=== PATIENT | female | born 1960 | race Caucasian/White ===

== ENCOUNTER 2016-12-11 00:08 | Inpatient (IN) ==
--- NOTE | 2016-12-11 00:33 | Emergency Department Note ---
Arrival - Arrival Chief Complaint: Abdominal / Flank Pain ED Nursing Triage Note: Patient is a transfer from [facility] for further evaluation of acute appendicits. Patient states that abdominal/flank pain is a 7 on a scale from 0-10. Patient recieved 50mg benadryl IV, zosyn 3, 375mg, and 1L of NS IV bolus. Mode of Arrival: Stretcher Limitations: No Limitations Source: Patient Time Seen by Provider: 12/11/16 00:27 - History of Present Illness HPI Narrative: This 56-year-old white female presents with complaints of onset of abdominal pain in the c application developer hours the progressively settled in the right lower quadrant. Coincident but this was severe headache and for both reasons she went to [facility] for further evaluation this evening. Subsequent workup at [place] demonstrated white blood cell count 17,[address] revealed mildly dilated appendix at 9 mm but no periappendiceal inflammatory stranding but felt consistent still with appendicitis. Also noted were multiple renal cysts and masses. Also performed was a CT of the head without contrast which revealed a normal brain. Currently she rates her abdominal pain at 7 out of 10. She is in no acute medical distress. Onset (ago): hour(s) (Patient presents 12 hours post onset of symptoms) Date of Last Menstrual Period: hysterectomy Allergies/Adverse Reactions: Allergies Allergy/AdvReac Type Severity Reaction Status Date / Time No Known Allergies Allergy Verified 07/21/16 12:23 Home Medications: Home Medications Medication Instructions Recorded Confirmed Type Pindolol 2.5 mg PO BEDTIME 07/21/16 07/28/16 History Ranitidine Tab [Zantac Tab] 150 mg PO BID 07/21/16 07/28/16 History Sertraline [Zoloft] 100 mg PO BEDTIME 07/21/16 07/28/16 History rOPINIRole [Requip] 3 mg PO BEDTIME 07/21/16 07/28/16 History oxyCODONE/ACETAMINOPHEN 5-325 1 tablet PO Q4H PRN #15 tablet 07/28/16 Rx [Percocet 5-325] Review of System - Review of System 12 point system: reviewed and no additional remarkable complaints except as stated - Review of System Constitutional: Present: as per HPI Gastrointestinal: Present: as per HPI Medical,Surgical,& Family Hx - Medical History Cardio: History of: Hypertension Psychological: History of: Anxiety Disorders Neurology: No history of: Seizures HEENT: History of: Eye Problem (GLASSES), Dental Problems (FULL SET) Endocrine: History of: Dyslipidemia (past hx) Respiratory: No history of: Respiratory Problems (FLU VAC- YES; PNEU VAC-NO.) Genitourinary: History of: Bladder Problem (URGENCY TO URINATE) Gastrointestinal: History of: GERD, Polyps (REMOVED), GI Problems (HIATAL HERNIA , FISSURE) Musculoskeletal: History of: Musculoskeletal Problems (LT ARM FX A CHILD.) Reproductive: History of: Endometriosis - Surgical History Abdominal Surgeries: Surgical HX of: Abdominal Surgery (FISSURE SX IN PAST), Cholecystectomy, Colonoscopy, EGD Reproductive Surgeries: Surgical HX of;: Hysterectomy, Tubal Ligation - Social History Smoking Status: Never smoker Frequency of Alcohol Use: None Type of Drug Use: None Exam Physical Examination: GENERAL: Obese white female in no acute distress. HEENT: Normocephalic. No trauma. Moist mucous membranes. EOMI. PERRLA. ENT NML NECK: Supple. No adenopathy. CARDIAC: Regular. No murmurs. Heart rate 76 CHEST: Clear to auscultation. No respiratory distress. O2 sat 92% ABDOMEN: Soft. Very tender right lower quadrant with hypoactive bowel sounds. EXTREMITIES: No trauma. Normal ROM. No pedal edema. SKIN: No diaphoresis. No rash. NEURO: Alert. Oriented 3. Motor, sensory, vibratory intact. No focal deficits. Vital Signs: Vital Signs Temperature 98.4 F 12/11/16 00:08 Pulse Rate 76 12/11/16 00:08 Respiratory Rate 21 12/11/16 00:08 Blood Pressure 155/78 12/11/16 00:08 O2 Sat by Pulse Oximetry 92 L 12/11/16 00:08 Course - Reevaluation(s) Reevaluation #1: Discussed with patient the need for hospitalization. - Consultations Consultation #1: Discussed with Dr. Shepherd who will admit for further evaluation and surgical intervention. Results - Diagnostic Findings Procedure: CT Abdomen and Pelvis: image reviewed by me, report reviewed by me ( CT results [place] appendix mildly dilated measuring up to 9 mm in diameter multiple small renal masses bilaterally some cystic while others appear hyperdense suggestive of hemorrhagic or hyperdense cyst), CT: image reviewed by me, report reviewed by me (Head: Normal brain) Disposition Clinical Impression: Appendicitis, Renal cysts Case discussed with: patient, patient's family Disposition: Still a Patient Condition: Guarded Time of Disposition: 00:40
[2016-12-11] MEDS ORDERED: ONDANSETRON 4 MG/2 ML VIAL IV PRN (00:42)
[2016-12-11] MEDS ORDERED: hydrALAZINE 20 MG/1 ML VIAL IV PRN (00:42)
[2016-12-11] MEDS ORDERED: HYDROmorphone 2 MG/1 ML VIAL IV PRN (00:42)
[2016-12-11] MEDS ORDERED: PIPERACILLIN/TAZOBACTAM 3,375 MG in SODIUM CHLORIDE 0.9% 100 ML IV SCH (02:00)
[2016-12-11] MEDS ORDERED: ONDANSETRON 4 MG/2 ML VIAL ONE ×2 (02:45→10:35)
[2016-12-11] MEDS ORDERED: HYDROmorphone 2 MG/1 ML VIAL ONE (02:45)
[2016-12-11] MEDS: LACTATED RINGERS 1,000 ML IV SCH ×2 (05:55→17:55)
[2016-12-11 06:39] LABS: Basophils % 0.2 % (0.0-0.8); Eosinophils # 0.5 10*3/uL (0.0-0.87); Eosinophils % 4.8 % (0.00-10.9); Hemoglobin 11.8 GM/DL (12.0-16.0); Immature Granulocytes % 0.3 %; Immature Granulocytes Absolute 0.03 #; Lymphocytes # 1.1 10*3/uL (1.4-4.0); Lymphocytes % 11.4 % (21.3-54.2); Mean Corpuscular HGB Conc 33.7 GM/DL (32-36); Mean Corpuscular Hemoglobin 30 PG (27-34); Mean Corpuscular Volume 89.5 FL (87-102); Mean Platelet Volume 11.7 FL (9.6-12.0); Monocytes # 0.5 10*3/uL (0.11-0.8); Monocytes % 5.3 % (1.7-12.7); Neutrophils # 7.7 10*3/uL (1.4-7.4); Platelet Count 135 T/CUMM (130-400); Red Blood Count 3.91 MC/CUMM (3.8-5.5); Red Cell Distribution Width 13.2 % (9.3-17.3); White Blood Count 9.8 T/CUMM (4-12)
[2016-12-11 06:59] LABS: INR 1.1; PT Patient Result 11.8 SECS; Partial Thromboplastin Time 32.6 SECS (0-40)
[2016-12-11 07:11] LABS: Bilirubin,Total 1.6 MG/DL (0.2-1.0); Calcium 8.3 MG/DL (8.5-10.1); Potassium 3.8 MMOL/L (3.5-5.1); Total Protein 5.9 G/DL (6.4-8.3)
[2016-12-11 08:01] LABS: Hypochromasia 2+; Microcytosis 1+
--- NOTE | 2016-12-11 09:32 | General Surg History&Physical ---
Assessment and Plan (1) Appendicitis Status: Acute Assessment and plan: This patient has early acute appendicitis. Her headache is likely related to her appendicitis and fever. I recommended a laparoscopic appendectomy to the patient but I have discussed the option of medical management. The risks, benefits, and alternatives of the operation have been discussed with the patient and the expected outcomes have been reviewed. In addition, I mentioned the possibility of diagnostic laparoscopy if her appendix is normal to look at other causes for pain and treat him at the time of surgery. I also discussed the possibility of open surgery. The patient would like to proceed Current Visit: Yes History of Present Illness Chief complaint: Abdominal pain History of present illness: Ms. Abernathy is a 56 year old female who presents to the ER with abdominal pain that started yesterday. She had a headache and some abdominal pain in the right lower quadrant and had a subjective fever at home that she then recorded around 103. She defervesced after shower but continued to have abdominal pain with nausea no vomiting. She has never had problems with this before. She has had a laparoscopic cholecystectomy but no other abdominal surgery. The patient was evaluated at [facility] which demonstrated early appendicitis on her CT scan. White blood cell count is normal. She was transferred [facility] for management. She continues to have pain this morning and is focally having pain in the right lower quadrant Home Medications Medication Instructions Recorded Confirmed Type Pindolol 2.5 mg PO BEDTIME 07/21/16 12/11/16 History Ranitidine Tab [Zantac Tab] 150 mg PO BID 07/21/16 12/11/16 History Sertraline [Zoloft] 100 mg PO BEDTIME 07/21/16 12/11/16 History rOPINIRole [Requip] 3 mg PO BEDTIME 07/21/16 12/11/16 History Furosemide Tab [Lasix Tab] 40 mg PO DAILY PRN 12/11/16 12/11/16 History Allergies Allergy/AdvReac Type Severity Reaction Status Date / Time No Known Allergies Allergy Verified 07/21/16 12:23 Medical,Surgical,& Family Hx - Medical History Cardio: History of: Hypertension Psychological: History of: Anxiety Disorders Neurology: No history of: Seizures HEENT: History of: Eye Problem (GLASSES), Dental Problems (FULL SET) Endocrine: History of: Dyslipidemia (past hx) Respiratory: No history of: Respiratory Problems (FLU VAC- YES; PNEU VAC-NO.) Genitourinary: History of: Bladder Problem (URGENCY TO URINATE) Gastrointestinal: History of: GERD, Polyps (REMOVED), GI Problems (HIATAL HERNIA , FISSURE) Musculoskeletal: History of: Musculoskeletal Problems (LT ARM FX A CHILD.) Reproductive: History of: Endometriosis - Surgical History Abdominal Surgeries: Surgical HX of: Abdominal Surgery (FISSURE SX IN PAST), Cholecystectomy, Colonoscopy, EGD Reproductive Surgeries: Surgical HX of;: Hysterectomy, Tubal Ligation - Family History Family History: Reports;: Family Diabetes (mother), Family Hypertension (mother and father) - Social History Smoking Status: Never smoker Frequency of Alcohol Use: None Type of Drug Use: None Exam - Constitutional Vitals: Period Temp Pulse Resp BP Sys/Mejia Pulse Ox Last 24 Hr 97.2 F-98.4 F 61-76 18-21 100-155/51-78 90-97 General appearance: no acute distress, over weight - Head Head exam: Present: normal inspection, normocephalic - Eye Eye exam: Present: EOMI. Absent: scleral icterus Pupils: Present: TODD - ENT ENT exam: Present: normal exam Mouth exam: Present: normal external inspection, normal voice - Neck Neck exam: Present: normal inspection, trachea midline - Respiratory Respiratory exam: Present: clear to auscultation bilaterally. Absent: accessory muscle use, chest wall tenderness - Cardiovascular Cardiovascular exam: Present: RRR. Absent: systolic murmur, tachycardia - GI/Abdominal GI/Abdominal exam: Present: normal bowel sounds, tenderness (Patient is focally tender in the right lower quadrant with no rebound but there is some voluntary guarding.), soft. Absent: rebound - Extremities Exam Extremities exam: Present: normal inspection, normal capillary refill - Back Exam Back exam: Present: normal inspection - Neurological Exam Neurological exam: Present: alert, oriented X3 Speech: Present: normal - Skin Skin exam: Present: normal color, warm - Constitutional Constitutional: Present: as per HPI - EENT Nose, mouth and throat: Present: as per HPI - Cardiovascular Cardiovascular: Present: as per HPI - Respiratory Respiratory: Present: as per HPI - Gastrointestinal Gastrointestinal: Present: as per HPI - Genitourinary Genitourinary: Present: as per HPI - Musculoskeletal Musculoskeletal: Present: as per HPI - Neurological Neurological: Present: as per HPI - Endocrine Endocrine: Present: as per HPI Hematologic/Lymphatic: Present: as per HPI Results - Labs CBC & BMP: 12/11/16 06:16 12/11/16 06:16 - Diagnostic Findings Procedure: CT Abdomen and Pelvis: image reviewed by me, report reviewed by me ( Early acute appendicitis)
[2016-12-11] MEDS ORDERED: SUCCINYLCHOLINE 200 MG/10 ML VIAL ONE (10:35)
[2016-12-11] MEDS ORDERED: NEOSTIGMINE 10 MG/10 ML VIAL ONE (10:35)
[2016-12-11] MEDS ORDERED: PROPOFOL 200 MG/20 ML VIAL IV ONE (10:35)
[2016-12-11] MEDS ORDERED: ROCURONIUM 100 MG/10 ML VIAL IV ONE (10:35)
[2016-12-11] MEDS ORDERED: GLYCOPYRROLATE 0.4 MG/2 ML VIAL ONE (10:35)
[2016-12-11] MEDS ORDERED: LIDOCAINE 2% 5 ML VIAL ONE (10:35)
[2016-12-11] MEDS ORDERED: KETOROLAC 30 MG/1 ML VIAL ONE (10:35)
[2016-12-11] MEDS ORDERED: PHENYLEPHRINE 1 MG/10 ML SYRINGE IV ONE (10:35)
[2016-12-11] MEDS ORDERED: DEXAMETHASONE 10 MG/1 ML VIAL ONE (10:35)
--- NOTE | 2016-12-11 11:14 | Operative Note ---
Date of procedure: 12/11/16 Pre-op diagnosis: Acute appendicitis Post-op diagnosis: same Procedure: Preoperative diagnosis Acute appendicitis Postoperative diagnosis Same Procedures performed Laparoscopic appendectomy Findings Acute appendicitis, early Blood loss 5 mL Anesthesia GETA Complications None apparent Specimen Appendix Indications Right lower quadrant pain with CT scan concerning for acute early appendicitis consistent with clinical situation. I discussed the option of medical treatment with antibiotics alone with the patient in detail. I discussed the failure rate of 25% with antibiotics alone and the requirement to stay in the hospital for several days of antibiotics and observation. The patient decided to proceed with laparoscopic appendectomy. I discussed the risks, benefits, and alternatives of the operation with the patient, and the expected outcomes were reviewed. In particular, I discussed the risk of bleeding, infection, wound complications, bowel obstruction, and ureteral injury. The patient elects to proceed with the operation. Description of procedure The patient was taken to the operating room and transferred to the operating table in the supine position. Pressure points were padded and SCDs were placed to bilateral lower extremities. General endotracheal anesthesia was administered. The abdominal hair was clipped with electric clippers and the abdomen was prepped with chlorhexidine and draped sterilely. Preoperative antibiotics were administered, and a timeout was performed. The abdomen was entered in the supraumbilical location in the right paramedian position with a Veress needle. Local anesthetic was administered and a 12 mm skin incision was made with an 11 blade scalpel. Penetrating towel clips were used to grasp the abdominal wall skin and a Veress needle was used into the peritoneal cavity. Intra-peritoneal location was confirmed with a double click technique. Aspiration was negative. Saline drop test confirmed intraperitoneal location. The abdomen was insufflated to 15 mmHg with initial insufflation pressure of 8 mmHg. The Veress needle was removed and a 12 mm trocar was placed bluntly. Diagnostic laparoscopy was then performed. There was no evidence of Veress needle or trocar injury. The patient was placed in Trendelenburg and left side rolled down position. Under direct visualization, and after local anesthetic was administered, 2 additional 5 mm trochars were placed in the suprapubic position in the left lower quadrant position. The bowel was then moved out of the right lower quadrant and the appendix was visualized. The appendix appeared to have evidence of early inflammation with injection of the wall of the appendix and dilation of the appendix. There is no perforation. There is no abscess. The appendix was grasped and retracted towards the patient 's feet in a window in the appendiceal mesentery was created with [place] dissector. LEEANN stapler was then used to transect the base of the appendix. The appendiceal mesentery was also divided using vascular staple loads. The right lower quadrant was focally suction irrigated. This was done until the effluent was clear. The appendix was placed in Endo Catch bag and removed through the 12 mm trocar site. The CO2 was then released from the abdomen and the trochars were removed. Skin incisions were closed with 4-0 Monocryl and sterile skin glue was applied. The patient was awakened from anesthesia and transferred to recovery. Postoperative plan Diet as tolerated Follow-up in 2 weeks Anesthesia: CLARITA, local Surgeon / Physician: Breezy Shepherd Estimated blood loss: minimal Specimens: other (appendix) Condition: stable Disposition: PACU Results - Labs CBC & BMP: 12/11/16 06:16 12/11/16 06:16 Discharge Plan - Discharge Medications No Action Sertraline [Zoloft] 100 mg PO BEDTIME Ranitidine Tab [Zantac Tab] 150 mg PO BID rOPINIRole [Requip] 3 mg PO BEDTIME Furosemide Tab [Lasix Tab] 40 mg PO DAILY PRN PRN Reason: fluid Pindolol 2.5 mg PO BEDTIME - Follow Up or Referral - Forms/Instructions
--- NOTE | 2016-12-11 11:16 | Discharge Summary ---
Hospital Course - Hospital Course Hospital Course: Patient was admitted and treated with laparoscopic appendectomy for early acute appendicitis. She was discharged home postoperatively. There is no perforation. Diagnosis - Discharge Diagnosis (1) Appendicitis Status: Acute Discharge Plan - Discharge Data Disposition: Disch To Home/Self Care Condition at Discharge: Stable Discharge Diet: advance to your usual diet Activity: no lifting Hygiene: may shower Weight Bearing at Discharge: weight bear as tolerated Driving: other (Do not drive or operate heavy machinery for at least 24 hours and after you are off of narcotic pain medications.) Contact your physician if you experience:: fever over 101, Difficulty voiding, Redness or swelling, Nausea/Vomiting, Shortness of breath, Bleeding, pain uncontrolled by pain medications Wound / Dressing Care Instructions: It is okay to shower. Do not scrub the incision aggressively or submerge it under water. - Discharge Medications New HYDROcodone/ACETAMIN 7.5-325 [Dawes 7.5-325] 1 tablet PO Q4H PRN #20 tablet PRN Reason: Pain Continue Sertraline [Zoloft] 100 mg PO BEDTIME Ranitidine Tab [Zantac Tab] 150 mg PO BID rOPINIRole [Requip] 3 mg PO BEDTIME Furosemide Tab [Lasix Tab] 40 mg PO DAILY PRN PRN Reason: fluid Pindolol 2.5 mg PO BEDTIME - Follow Up or Referral Follow Up: Breezy Shepherd MD [Physician] - 2 Weeks - Forms/Instructions Exam - Constitutional Vitals: Period Temp Pulse Resp BP Sys/Mejia Pulse Ox Last 24 Hr 97.2 F-98.4 F 61-76 18-21 100-155/51-78 90-97 Discharge Results Labs on day of discharge: Labs from last 24 hours 12/11/16 12/11/16 12/11/16 06:16 06:16 06:16 WBC 9.8 RBC 3.91 Hgb 11.8 L Hct 35.0 L MCV 89.5 MCH 30 MCHC 33.7 RDW 13.2 Plt Count 135 MPV 11.7 Neut % (Auto) 78.0 H Lymph % (Auto) 11.4 L Hyde % (Auto) 5.3 Eos % (Auto) 4.8 Baso % (Auto) 0.2 Neut # (Auto) 7.7 H Lymph # (Auto) 1.1 L Hyde # (Auto) 0.5 Eos # (Auto) 0.5 Baso # (Auto) 0.0 Immature Gran % 0.3 Nucleated RBC % 0.0 Immature Gran # 0.03 Nucleated RBCs # 0.00 Immature Plt Fraction 0.0 Hypochromasia 2+ Microcytosis 1+ INR 1.1 PT Patient/Control Mix 11.8 Circ Anticoag PTT 32.6 Sodium 143 Potassium 3.8 Chloride 111 H Carbon Dioxide 26 Anion Gap 9.8 BUN 17 Creatinine 0.80 GFR Calculation 96 BUN/Creatinine Ratio 21.00 H Glucose 96 Calculated Osmolality 286.0 Calcium 8.3 L Total Bilirubin 1.60 H AST 33 ALT 37 Alkaline Phosphatase 72 Total Protein 5.9 L Albumin 3.0 L Globulin 2.9 Albumin/Globulin Ratio 1.0 L DS: Provider Date of admission: 12/11/16 00:40 Primary care physician: Alex Richards Attending physician on admission: Breezy Shepherd MD Consults: 12/11/16 09:28 Consult to Anesthesiology [CONS] Routine Consulting Provider: Reason for Anesthesiology: Pre-op Clearance Discharging clinician: Breezy Sehpherd MD Expected date of discharge: 12/11/16
--- NOTE | 2016-12-11 11:34 | Anesthesia Post-Op ---
Anesthesia Post OP - Post Ansesthetic Evaluation Patient seen in post op: Yes Resp: within normal limits CV: within normal limits Mental: within normal limits Temp: within normal limits [id number]: within normal limits Nausea and Vomiting: within normal limits Pain: within normal limits
[2016-12-11] MEDS ORDERED: fentaNYL 100 MCG/2 ML VIAL ONE (11:36)
[2016-12-11] MEDS ORDERED: SEVOFLURANE 1 UNIT/15 MINUTE INH ONE (11:36)
[2016-12-11] MEDS ORDERED: MIDAZOLAM 2 MG/2 ML VIAL ONE (11:36)
[2016-12-11] MEDS ORDERED: FUROSEMIDE 40 MG TABLET PO PRN (12:33)
[2016-12-11 18:26] VITALS: BP 118/63
[2016-12-11] MEDS ORDERED: RANITIDINE 150 MG TABLET PO SCH (21:00)
[2016-12-11] MEDS ORDERED: rOPINIRole 1 MG TABLET PO SCH (21:00)
[2016-12-11] MEDS ORDERED: PINDOLOL 5 MG TABLET PO SCH (21:00)
[2016-12-11] MEDS ORDERED: SERTRALINE 100 MG TABLET PO SCH (21:00)
--- NOTE | 2016-12-13 11:24 | Pathology Report from [facility] ---
[facility] ACCESSION # : [id number] PATIENT NAME : Noa Abernathy ORDERING DR : Breezy Shepherd MD CLINICAL HX: Appendicitis POST-OP DX: Same SPECIMEN INFO: Appendix GROSS DESCRIPTION: Received in formalin labeled NOA ABERNATHY is an appendix and attached appendiceal fat measuring 5.3 x 0.9 cm. The serosa is smooth and light nickerson junior. The lumen contains semisolid hemorrhagic material with no definite fecaliths identified. No perforations are seen. Society Editor sections are submitted in one cassette. DIAGNOSIS FOR NOA ABERNATHY: APPENDIX, APPENDECTOMY: Chronic inflammation, serosal congestion. COLLECTED DATE: 12/12/2016 [facility] REPORT DATE: 12/13/2016 ELECTRONICALLY SIGNED BY: Saleem Kendall M.D. 12/13/2016 - 10:15:38 MTDD
== END 2016-12-11 18:56 | disposition home or self-care (01) | DRG 343 ==
LOC: EDBD → EDUNIT# → N.ED 00:08 → N.EDINP 00:40 → N.3E 02:02
PROVIDERS: ADMIT Surgery; ATTEND Surgery

== ENCOUNTER 2016-12-28 19:04 | Inpatient (IN) ==
[2016-12-28] MEDS ORDERED: FUROSEMIDE 40 MG/4 ML VIAL IV STA (19:56)
[2016-12-28] MEDS ORDERED: ALBUTEROL/IPRATROPIUM 3 ML NEB RESP TX STA (19:56)
[2016-12-28] MEDS ORDERED: methylPREDNISolone SOD SUC 125 MG/2 ML VIAL IV STA (19:56)
[2016-12-28] MEDS ORDERED: MORPHINE 2 MG/1 ML SYRINGE IV STA (19:56)
[2016-12-28] MEDS ORDERED: ALUM/MAG/SIMETH/LIDO VISC 1:1 30 ML BOTTLE PO STA (19:56)
[2016-12-28] MEDS ORDERED: NITROGLYCERIN 2% OINT 1 INCH/GM PACK TOP STA (19:56)
[2016-12-28] MEDS ORDERED: ONDANSETRON 4 MG/2 ML VIAL IV STA (19:56)
[2016-12-28] MEDS ORDERED: KETOROLAC 30 MG/1 ML VIAL IV STA (19:56)
[2016-12-28] MEDS ORDERED: ASPIRIN 325 MG TABLET PO STA (19:56)
--- NOTE | 2016-12-28 20:13 | Emergency Department Note ---
Daksha Patiño Brittany, am scribing for, and in the presence of, Mike Madrid MD 20:06. Mercy Patiño Charles R, MD, personally performed the services described in this documentation, ascribed by Aida Crooks in my presence, and it is both accurate and complete . Arrival - Arrival Chief Complaint: Chest Pain Stated Complaint: SOB,CHEST PAIN,FEVER ED Nursing Triage Note: Pt to triage with c/o chest pain that started around 0130 this morning that feels very sharp and radiates to her back. Pt also c/o sob, but denies any N/V. Pt has a cardiac hx of mitral valve prolapse. Pt was seen at [facility] today but discharge home. Mode of Arrival: Wheelchair Limitations: No Limitations Source: Patient - History of Present Illness HPI Narrative: This is a 56 y/o white female,who presents to the ED with c/o CP which started at 0130 this morning. She states she was seen at [facility] ER this morning and had a chest x-ray preformed. She notes she is SOB. She describes the chest pain as a sharp pain. She notes the chest pain radiates into her back. She localizes the CP to the right of the chest. She reports a fever around lunch today. She notes orthopnea while laying down flat. Pt reports taking Lasix for "fluid". Pt has no other complaints/pain in the ED at this time. Pt has a PMhx of mitral valve prolapse, HTN, dyslipidemia, anxiety, bladder problems, polys, GERD, GI problems, musculoskeletal problems, and edometrosis. Pt has had a abdominal surgery, appendectomy cholecystectomy, EGD, colonoscopy, hysterectomy, and tubal ligation. Pt has a family medical Hx of diabetes and HTN. Pt denies a social Hx. Onset (ago): hour(s) (Started at 0130 this morning) Consistency: constant Severity: moderate Allergies/Adverse Reactions: Allergies Allergy/AdvReac Type Severity Reaction Status Date / Time No Known Allergies Allergy Verified 12/28/16 19:22 Home Medications: Home Medications Medication Instructions Recorded Confirmed Type Pindolol 2.5 mg PO BEDTIME 07/21/16 12/28/16 History Ranitidine Tab [Zantac Tab] 150 mg PO BID 07/21/16 12/28/16 History Sertraline [Zoloft] 100 mg PO BEDTIME 07/21/16 12/28/16 History rOPINIRole [Requip] 3 mg PO BEDTIME 07/21/16 12/28/16 History Furosemide Tab [Lasix Tab] 40 mg PO DAILY PRN 12/11/16 12/28/16 History Ibuprofen [Ibuprofen] 600 mg PO TID PRN 12/28/16 12/28/16 History Oxycodone HCl/Acetaminophen 1 each PO Q4H PRN 12/28/16 12/28/16 History [Oxycodone-Acetaminophen 5-325] Review of System - Review of System 12 point system: reviewed and no additional remarkable complaints except as stated - Review of System Constitutional: Present: fever (Low grade fever ) Respiratory: Present: cough (Dry cough) Cardiovascular: Present: chest pain, dyspnea on exertion, orthopnea Medical,Surgical,& Family Hx - Medical History Cardio: History of: Hypertension Psychological: History of: Anxiety Disorders Neurology: No history of: Seizures HEENT: History of: Eye Problem (GLASSES), Dental Problems (FULL SET) Endocrine: History of: Dyslipidemia (past hx) Respiratory: No history of: Respiratory Problems (FLU VAC- YES; PNEU VAC-NO.) Genitourinary: History of: Bladder Problem (URGENCY TO URINATE) Gastrointestinal: History of: GERD, Polyps (REMOVED), GI Problems (HIATAL HERNIA , FISSURE) Musculoskeletal: History of: Musculoskeletal Problems (LT ARM FX A CHILD.) Reproductive: History of: Endometriosis - Surgical History Abdominal Surgeries: Surgical HX of: Abdominal Surgery (FISSURE SX IN PAST), Appendectomy, Cholecystectomy, Colonoscopy, EGD Reproductive Surgeries: Surgical HX of;: Hysterectomy, Tubal Ligation - Family History Family History: Reports;: Family Diabetes (mother), Family Hypertension (mother and father) - Social History Smoking Status: Never smoker Frequency of Alcohol Use: None Type of Drug Use: None Exam Vital Signs: Vital Signs Temperature 99.2 F 12/28/16 19:15 Pulse Rate 96 H 12/28/16 20:29 Respiratory Rate 18 12/28/16 20:29 Blood Pressure 123/69 12/28/16 19:15 O2 Sat by Pulse Oximetry 99 12/28/16 20:29 - General General appearance: alert, in no apparent distress - Head Head exam: Present: normal inspection - Eye Eye exam: Present: PERRL, EOMI. Absent: nystagmus - ENT ENT exam: Present: mucous membranes moist - Neck Neck exam: Present: full ROM, trachea midline. Absent: tenderness - Chest Chest inspection: Present: symmetric chest wall rise, tenderness (pleuritic chest pain which is under the right breast and moves into the back ). Absent: rash - Respiratory Respiratory exam: Present: rales, rhonchi - Cardiovascular Cardiovascular exam: Present: normal rhythm, tachycardia, normal heart sounds. Absent: murmur, rubs, gallop, clicks, JVD - Abdominal Exam Abdominal exam: Present: soft, normal bowel sounds. Absent: tenderness - Rectal Exam Rectal exam: Present: deferred - Extremities Exam Extremities exam: Present: normal capillary refill, pedal edema (+1 pitting edema). Absent: tenderness, calf tenderness - Back Exam Back exam: Present: full ROM. Absent: tenderness, muscle spasm, rashes - Neurological Exam Neurological exam: Present: alert, oriented X3, CN II-XII intact. Absent: motor sensory deficit - Psychiatric Psychiatric exam: Present: normal affect, normal mood. Absent: depressed, agitated, anxious, flat affect, manic - Skin Skin exam: Present: warm, dry, intact, normal color. Absent: rash, cyanosis, diaphoresis Course - Consultations Consultation #1: Hospitalist will admit patient Time: 22:06 Results - Labs CBC & BMP: 12/28/16 20:02 12/28/16 20:02 - Diagnostic Findings Procedure: Chest x-ray: report reviewed by me (Increased density, partially silhouetting the left hemidiaphragm,) Disposition Clinical Impression: Atypical chest pain, Bronchitis, Pneumonitis, Acute dyspnea Case discussed with: patient, patient's family Disposition: Still a Patient Condition: Stable Time of Disposition: 22:08
--- NOTE | 2016-12-28 20:15 | XRay Report ---
Portable chest Exam date: 12/28/2016 7:57 PM Indication: Chest pain Comparison: December 10, 2016 Findings: Cardiomediastinal contours are stable with underlying cardiomegaly. Increasing density within the left lung base with partial silhouetting of left hemidiaphragm. No acute osseous abnormalities. Visualized upper abdomen demonstrates no acute pathology. Impression: Increased density, partially silhouetting the left hemidiaphragm, likely atelectasis given low lung volumes. Correlate with upright PA and lateral projection PROCEDURE INTERPRETED AT [facility] DEPARTMENT OF RADIOLOGY Final Report Signed by: Savi Machado MD
[2016-12-28 20:16] LABS: Basophils % 0.2 % (0.0-0.8); Eosinophils # 0.2 10*3/uL (0.0-0.87); Eosinophils % 1.6 % (0.00-10.9); Hematocrit 38.2 VOL% (35.7-47.0); Hemoglobin 13.1 GM/DL (12.0-16.0); Immature Granulocytes % 0.7 %; Immature Granulocytes Absolute 0.08 #; Lymphocytes # 0.9 10*3/uL (1.4-4.0); Lymphocytes % 7.6 % (21.3-54.2); Mean Corpuscular HGB Conc 34.3 GM/DL (32-36); Mean Corpuscular Hemoglobin 30 PG (27-34); Mean Corpuscular Volume 86.8 FL (87-102); Mean Platelet Volume 11.3 FL (9.6-12.0); Monocytes # 0.5 10*3/uL (0.11-0.8); Monocytes % 4.6 % (1.7-12.7); Neutrophils # 9.6 10*3/uL (1.4-7.4); Neutrophils % 85.3 % (38.7-73.9); Platelet Count 169 T/CUMM (130-400); Red Cell Distribution Width 12.7 % (9.3-17.3); White Blood Count 11.3 T/CUMM (4-12)
[2016-12-28 20:25] LABS: INR 1.1; PT Patient Result 11.4 SECS
[2016-12-28] MEDS ORDERED: MORPHINE 2 MG/1 ML SYRINGE ONE (20:27)
[2016-12-28] MEDS ORDERED: ONDANSETRON 4 MG/2 ML VIAL ONE (20:27)
[2016-12-28] MEDS ORDERED: methylPREDNISolone SOD SUC 125 MG/2 ML VIAL ONE (20:27)
[2016-12-28] MEDS ORDERED: NITROGLYCERIN 2% OINT 1 INCH/GM PACK TOP ONE (20:27)
[2016-12-28] MEDS ORDERED: KETOROLAC 30 MG/1 ML VIAL ONE (20:29)
[2016-12-28] MEDS ORDERED: ALUM/MAG/SIMETH/LIDO VISC 1:1 30 ML BOTTLE PO ONE (20:29)
[2016-12-28] MEDS ORDERED: ASPIRIN 325 MG TABLET ONE (20:29)
[2016-12-28] MEDS ORDERED: FUROSEMIDE 40 MG/4 ML VIAL ONE (20:29)
[2016-12-28 20:38] LABS: Albumin 3.3 G/DL (3.4-5.0); Bilirubin,Total 1.6 MG/DL (0.2-1.0); Magnesium 1.9 MG/DL (1.8-2.4); Osmolality,Calculated 275.7 MOS/KG (273-304); Potassium 4.1 MMOL/L (3.5-5.1); Total Protein 7.2 G/DL (6.4-8.3)
[2016-12-28 21:06] LABS: Apearance,Urine CLEAR (Clear); Bacteria,Urine Few /HPF (Few); Bilirubin,Urine Negative (Negative); Blood, Urine Negative (Negative); Glucose,Urine (UA) Negative (Negative); Ketones,Urine Negative (Negative); Mucus,Urine Occasional /LPF (Occasional); Nitrite,Urine Negative (Negative); Protein,Urine 30 MG/DL; RBC,Urine 1 /HPF (0-4); Squamous Epithelial Cell,Urine Occasional /HPF (0-10); Urine Color Yellow (Yellow); Urine Specific Gravity 1.025 (1.001-1.035); WBC,Urine 3 /HPF (0-6)
[2016-12-28] MEDS ORDERED: ACETAMINOPHEN 325 MG TABLET PO PRN (22:52)
[2016-12-28] MEDS ORDERED: ONDANSETRON 4 MG/2 ML VIAL IV PRN (22:52)
[2016-12-28] MEDS ORDERED: MORPHINE 2 MG/1 ML SYRINGE IV PRN (22:52)
--- NOTE | 2016-12-28 23:27 | Hospitalist History & Physical ---
Assessment and Plan - Time spent with patient Time spent with patient: Greater than 30 minutes (1) Pneumonitis Status: Acute Assessment and plan: Admit to hospitalist services. Start Levoquin 720 mg IV Q24 hours. Blood cultures obtained in ED; follow. Obtain sputum cultures; follow. DuoNebs Q6 hours. Initial troponin was <0.015; follow serial troponins and EKGs. Flu test was negative. Strep performed at [facility] was negative. Repeat CBC, CMP, and BNP in a.m. Repeat CXR in 48 hours. Current Visit: Yes (2) Atypical chest pain Status: Acute Assessment and plan: As above. Current Visit: Yes (3) Elevated LFTs Status: Acute Assessment and plan: As above. Repeat CMP in a.m. Current Visit: Yes (4) DVT prophylaxis Status: Acute Assessment and plan: Lovenox 40 mg SQ daily. Current Visit: Yes History of Present Illness Chief complaint: Chest pain; shortness of breath History of present illness: Ms. Abernathy is a 56 year old female with a past medical history of GERD, hiatal hernia, mitral valve prolapse, dyslipidemia, and hypertension for which she no longer needs medication who presented to the ED tonight with complaints of sharp , intermittent epigastric pain radiating into her back and worsened with any movement and on deep inspiration, as well as shortness of breath at rest and worsened by exertion, and coughing. Symptoms started at about 0130 today with severe coughing which was non-productive. She presented to [facility] at that time and was discharged home. Around lunchtime today she noted a fever of 99.8. Symptoms continue to worsen throughout the day, so she decided to present to the ED here. Just prior to arrival in the ED, she noted a fever of 101.4. She denies nausea, vomiting, and diaphoresis, but does have some orthopnea. She reports having an appendectomy here at [facility] about 2 1/2 weeks ago. She reports seeing Dr. Padilla yearly for mitral valve prolapse. Her last echocardiogram was about 2 years ago. In the ED, labs showed WBC 11.3 with a left shift, total bilirubin 1.6, AST 43, and BNP 281. Her temp was noted to be 99.2 in the ED, heart rate 103, respiratory rate 18, and blood pressure 123/69. Chest x-ray showed increased density, partially silhouetting the left hemidiaphragm. Severity of shortness of breath prompted the ERP to perform chest CT with PE protocol, which showed mild cardiomegaly, and scattered heterogeneous opacities in the peripheral lungs worse in the left lower lung, suggesting scarring and/or atelectasis. Mild pneumonitis cannot be excluded, but no PE was noted. Currently she is lying in bed resting comfortably with moderate relief of symptoms. Hospitalist services were consulted, and the patient will be admitted for further evaluation and treatment. Home medications were reviewed and reconciled. This patient is a full code. Home Medications Medication Instructions Recorded Confirmed Type Pindolol 2.5 mg PO BEDTIME 07/21/16 12/28/16 History Ranitidine Tab [Zantac Tab] 150 mg PO BID 07/21/16 12/28/16 History Sertraline [Zoloft] 100 mg PO BEDTIME 07/21/16 12/28/16 History rOPINIRole [Requip] 3 mg PO BEDTIME 07/21/16 12/28/16 History Furosemide Tab [Lasix Tab] 40 mg PO DAILY PRN 12/11/16 12/28/16 History Ibuprofen [Ibuprofen] 600 mg PO TID PRN 12/28/16 12/28/16 History Oxycodone HCl/Acetaminophen 1 each PO Q4H PRN 12/28/16 12/28/16 History [Oxycodone-Acetaminophen 5-325] Allergies Allergy/AdvReac Type Severity Reaction Status Date / Time No Known Allergies Allergy Verified 12/28/16 19:22 Medical,Surgical,& Family Hx - Medical History Cardio: History of: Hypertension (No longer takes medication for HTN. ), Valvular Heart Disease (Mitral valve prolapse; sees Dr. Padilla yearly. ) Psychological: History of: Anxiety Disorders HEENT: History of: Eye Problem (GLASSES), Dental Problems (FULL SET) Endocrine: History of: Dyslipidemia (past hx) Genitourinary: History of: Bladder Problem (URGENCY TO URINATE) Gastrointestinal: History of: GERD, Polyps (REMOVED), GI Problems (HIATAL HERNIA , FISSURE) Musculoskeletal: History of: Musculoskeletal Problems (LT ARM FX A CHILD.) Reproductive: History of: Endometriosis - Surgical History Abdominal Surgeries: Surgical HX of: Abdominal Surgery (FISSURE SX IN PAST), Appendectomy, Cholecystectomy, Colonoscopy, EGD Reproductive Surgeries: Surgical HX of;: Hysterectomy, Tubal Ligation - Family History Family History: Reports;: Family Diabetes (mother), Family Hypertension (mother and father) - Social History Smoking Status: Never smoker Have you smoked in the last 12 months: No Frequency of Alcohol Use: None Type of Drug Use: None Marital Status: Lives With:: Spouse Functional capacity: independent ambulation 12 point system: reviewed and no additional remarkable complaints except as stated - Constitutional Constitutional: Present: fever(s). Absent: chills, malaise, weakness - EENT Eyes: Absent: blurry vision, diplopia, loss of vision Ears: Absent: decreased hearing, ear discharge, ear pain Nose, mouth and throat: Present: sore throat. Absent: headache(s), nasal congestion - Cardiovascular Cardiovascular: Present: chest pain at rest, chest pain with activity, dyspnea, dyspnea on exertion, orthopnea. Absent: edema, radiating jaw, neck or arm pain , palpitations - Respiratory Respiratory: Present: cough (dry; non-productive ), dyspnea, dyspnea on exertion. Absent: wheezing - Gastrointestinal Gastrointestinal: Absent: abdominal pain, constipation, diarrhea, nausea, vomiting - Genitourinary Genitourinary: Absent: dysuria, flank pain, urinary frequency - Musculoskeletal Musculoskeletal: Present: back pain. Absent: arthralgias, joint swelling, muscle weakness, myalgias - Neurological Neurological: Absent: confusion, dizziness, numbness, paresthesias, syncope - Psychiatric Psychiatric: Absent: anxiety, depression - Endocrine Endocrine: Absent: cold intolerance, polydipsia, polyphagia, polyuria - Hematologic/Lymphatic Hematologic/Lymphatic: Absent: easy bleeding, easy bruising Exam - Constitutional Vitals: Period Temp Pulse Resp BP Sys/Mejia Pulse Ox Last 24 Hr 99.2 F-99.2 F 96-104 18-20 123-123/69-69 99-99 Exam: Constitutional System: Low-grade fever. Awake, alert and oriented x 3. [No] distress. [No] tremulousness. Head: Normocephalic, atraumatic. Ears, Nose and Throat System: No pain or tenderness. No epistaxis or discharge Eyes System: Pupils equal, round, and reactive. Extraocular muscles intact. Neck: Supple, without adenopathy, [No] jugular venous distention. No thyromegaly , neck mass, or prior surgery apparent. Respiratory System: Chest [clear] to auscultation. Cardiovascular System: Heart with [regular] rate and rhythm. [No] murmur. GI System: Abdomen [soft], [non]tender. [Normo]active bowel sounds present. Musculoskeletal System: Limbs with [no] pedal edema. [Full] distal pulses. Normal capillary refill. Neurological System: [No discernable] sensory deficit. [No] aphasia Psychiatric System: Conversation is [rational] Results - Labs CBC & BMP: 12/28/16 20:02 12/28/16 20:02 Lab Results: I have reviewed the past 24 hour labs
[2016-12-29] MEDS: ALBUTEROL/IPRATROPIUM 3 ML NEB RESP TX SCH ×4 (00:21→19:11)
[2016-12-29] MEDS: LEVOFLOXACIN INJ 750 MG in PREMIX 1 EACH IV SCH (00:56)
[2016-12-29] MEDS: ENOXAPARIN 40 MG/0.4 ML SYRINGE SUBCUT SCH ×2 (00:58→23:27)
[2016-12-29] MEDS: rOPINIRole 1 MG TABLET PO SCH ×2 (01:00→21:08)
[2016-12-29] MEDS: FAMOTIDINE 20 MG TABLET PO SCH ×3 (01:01→21:07)
[2016-12-29] MEDS: PINDOLOL 5 MG TABLET PO SCH ×2 (01:01→21:08)
[2016-12-29] MEDS: SERTRALINE 100 MG TABLET PO SCH ×2 (01:01→21:07)
[2016-12-29 02:27] LABS: Basophils % 0.2 % (0.0-0.8); Hematocrit 36.4 VOL% (35.7-47.0); Hemoglobin 12.4 GM/DL (12.0-16.0); Immature Granulocytes % 0.5 %; Immature Granulocytes Absolute 0.05 #; Lymphocytes # 0.3 10*3/uL (1.4-4.0); Lymphocytes % 2.6 % (21.3-54.2); Mean Corpuscular HGB Conc 34.1 GM/DL (32-36); Mean Corpuscular Hemoglobin 30 PG (27-34); Mean Corpuscular Volume 86.9 FL (87-102); Mean Platelet Volume 11.3 FL (9.6-12.0); Monocytes # 0.1 10*3/uL (0.11-0.8); Monocytes % 0.9 % (1.7-12.7); Neutrophils # 9.8 10*3/uL (1.4-7.4); Neutrophils % 95.8 % (38.7-73.9); Platelet Count 162 T/CUMM (130-400); Red Blood Count 4.19 MC/CUMM (3.8-5.5); White Blood Count 10.2 T/CUMM (4-12)
[2016-12-29 03:06] LABS: Albumin 3.1 G/DL (3.4-5.0); Bilirubin,Total 1.8 MG/DL (0.2-1.0); Calcium 8.6 MG/DL (8.5-10.1); Osmolality,Calculated 282.7 MOS/KG (273-304); Risk Ratio 2.71; Thyroid Stimulating Hormone 2.27 uIU/ml (0.358-3.74); Total Protein 6.6 G/DL (6.4-8.3); VLDL CHOLESTEROL 9.8 MG/DL
[2016-12-29 05:28] LABS: Band Neutrophils 6 % (0-10); Giant Platelets Few; Hypochromasia 1+; Lymphocytes 1 % (20-55); Microcytosis Slight; Ovalocytes Slight; Platelet Estimate Normal; Segmented Neutrophils 92 % (50-85); Total Cells Counted 100
--- NOTE | 2016-12-29 06:53 | CT Report ---
CT chest pulmonary embolism Indication: Chest pain, shortness of breath and elevated d-dimer Comparison: None available Technique: Axial CT imaging of the chest is performed with intravenous contrast. Contrast dose is 80 cc of Omnipaque 350. Findings: No thrombus or other abnormality is identified in the pulmonary arteries or veins. The pulmonary vessel caliber is within normal limits. The heart, mediastinum and great vessels appear within normal limits. Trace amounts of airspace density are present in both lower lungs slightly more prominent on the left. Nondependent density is seen in the lingula segment. Remaining pulmonary parenchyma shows no evidence of airspace disease or abnormal density. No effusion or pneumothorax is present. Impression: No evidence of pulmonary thromboembolism. Small amounts of airspace density in both lower lungs, slightly more prominent in the lingula segment could indicate pneumonitis. This CT exam was performed using one or more the following dose reduction techniques: Automated exposure control, adjustment of the MA and/or KV according to patient size, or use of iterative reconstruction technique. PROCEDURE INTERPRETED AT [facility] DEPARTMENT OF RADIOLOGY Final Report Signed by: Dr. Claudio Puga
--- NOTE | 2016-12-29 08:00 | XRay Report ---
XR chest 2V Indication: Shortness of breath Comparison: 28 December 2016 Findings: The heart and mediastinum are normal in size and configuration. The pulmonary vascularity is normal in caliber. No lung infiltrates, effusions, pneumothorax or other abnormality is demonstrated. Impression: No acute cardiopulmonary disease. PROCEDURE INTERPRETED AT [facility] DEPARTMENT OF RADIOLOGY Final Report Signed by: Dr. Claudio Puga
--- NOTE | 2016-12-29 10:49 | Hospitalist Progress Note ---
Assessment and Plan (1) Pneumonitis Status: Acute Assessment and plan: Patient was begun last night on intravenous levofloxacin and albuterol ipratropium nebulizer therapy. Current Visit: Yes Hospitalist: Subjective Interval history: Patient was admitted to the hospital last night with pneumonia. She was begun on intravenous levofloxacin and albuterol ipratropium nebulizer therapy. She states that she feels mildly better since her admission to the hospital, but continues to feel extremely weak. Exam - Constitutional Vitals: Period Temp Pulse Resp BP Sys/Mejia Pulse Ox Last 24 Hr 96.8 F-99.2 F 68-104 18-20 93-125/50-69 90-99 General appearance: no acute distress - Head Head exam: Present: normal inspection - Neck Neck exam: Present: normal inspection - Respiratory Respiratory exam: Present: clear to auscultation bilaterally - Cardiovascular Cardiovascular exam: Present: regular rate and rhythm - GI/Abdominal GI/Abdominal exam: Present: normal bowel sounds, soft, other (Nontender with no palpable masses or hepatosplenomegaly.) - Extremities Exam Extremities exam: Present: normal inspection - Skin Skin exam: Present: normal color, warm, intact Results - Labs CBC & BMP: 12/29/16 02:19 12/29/16 02:19
--- NOTE | 2016-12-29 20:12 | Order Completion Report ---
See report scanned to EMR
--- NOTE | 2016-12-29 20:12 | Order Completion Report ---
See report scanned to EMR
--- NOTE | 2016-12-29 20:12 | Order Completion Report ---
See report scanned to EMR
[2016-12-30] MEDS: ALBUTEROL/IPRATROPIUM 3 ML NEB RESP TX SCH ×4 (00:39→19:18)
[2016-12-30] MEDS: LEVOFLOXACIN INJ 750 MG in PREMIX 1 EACH IV SCH (00:42)
[2016-12-30] MEDS: FAMOTIDINE 20 MG TABLET PO SCH ×2 (08:15→21:36)
--- NOTE | 2016-12-30 10:25 | Hospitalist Progress Note ---
Assessment and Plan (1) Pneumonitis Status: Acute Assessment and plan: Patient is being treated with intravenous levofloxacin and albuterol ipratropium nebulizer therapy. Current Visit: Yes Hospitalist: Subjective Interval history: Patient is doing somewhat better than yesterday. Her major complaint is coughing. She is not complaining of wheezing or shortness of breath. She continues on intravenous levofloxacin and albuterol ipratropium nebulizer therapy. Exam - Constitutional Vitals: Period Temp Pulse Resp BP Sys/Mejia Pulse Ox Last 24 Hr 96.7 F-98.3 F 68-85 15-20 115-133/59-75 91-99 General appearance: no acute distress - Head Head exam: Present: normal inspection - Neck Neck exam: Present: normal inspection - Respiratory Respiratory exam: Present: clear to auscultation bilaterally - Cardiovascular Cardiovascular exam: Present: regular rate and rhythm - GI/Abdominal GI/Abdominal exam: Present: normal bowel sounds, soft, other (Nontender with no palpable masses or hepatosplenomegaly.) - Extremities Exam Extremities exam: Present: normal inspection - Skin Skin exam: Present: normal color, warm, intact Results - Labs CBC & BMP: 12/29/16 02:19 12/29/16 02:19
--- NOTE | 2016-12-30 13:52 | General Surgery Consult Note ---
Assessment and Plan (1) S/P appendectomy Status: Acute Assessment and plan: Patient #2-1/2 weeks status post laparoscopic appendectomy for acute appendicitis. Appears to be no surgical complications at this time. Dr. Shepherd to follow. Current Visit: Yes History of Present Illness Chief complaint: appendectomy f/u History of present illness: Ms. Abernathy is a 56 year old female who underwent laparoscopic appendectomy for acute appendicitis on December 11, 2016. Her postoperative appointment was scheduled for today but she is currently inpatient receiving treatment for pneumonia for which she is improving. From a surgical standpoint, the patient reports that she was feeling well and had a return to work. She is having no abdominal pain and was tolerating oral intake without difficulty. She had no incisional symptoms. Home Medications Medication Instructions Recorded Confirmed Type Pindolol 2.5 mg PO BEDTIME 07/21/16 12/28/16 History Ranitidine Tab [Zantac Tab] 150 mg PO BID 07/21/16 12/28/16 History Sertraline [Zoloft] 100 mg PO BEDTIME 07/21/16 12/28/16 History rOPINIRole [Requip] 3 mg PO BEDTIME 07/21/16 12/28/16 History Furosemide Tab [Lasix Tab] 40 mg PO DAILY PRN 12/11/16 12/28/16 History Ibuprofen [Ibuprofen] 600 mg PO TID PRN 12/28/16 12/28/16 History Oxycodone HCl/Acetaminophen 1 each PO Q4H PRN 12/28/16 12/28/16 History [Oxycodone-Acetaminophen 5-325] Allergies Allergy/AdvReac Type Severity Reaction Status Date / Time No Known Allergies Allergy Verified 12/28/16 19:22 Medical,Surgical,& Family Hx - Medical History Cardio: History of: Hypertension (No longer takes medication for HTN. ), Valvular Heart Disease (Mitral valve prolapse; sees Dr. Padilla yearly. ) Psychological: History of: Anxiety Disorders Neurology: No history of: Seizures HEENT: History of: Eye Problem (GLASSES), Dental Problems (FULL SET) Endocrine: History of: Dyslipidemia (past hx) Respiratory: No history of: Respiratory Problems (FLU VAC- YES; PNEU VAC-NO.) Genitourinary: History of: Bladder Problem (URGENCY TO URINATE) Gastrointestinal: History of: GERD, Polyps (REMOVED), GI Problems (HIATAL HERNIA , FISSURE) Musculoskeletal: History of: Musculoskeletal Problems (LT ARM FX A CHILD.) Reproductive: History of: Endometriosis - Surgical History Abdominal Surgeries: Surgical HX of: Abdominal Surgery (FISSURE SX IN PAST), Appendectomy, Cholecystectomy, Colonoscopy, EGD Reproductive Surgeries: Surgical HX of;: Hysterectomy, Tubal Ligation - Family History Family History: Reports;: Family Diabetes (mother), Family Hypertension (mother and father) - Social History Smoking Status: Never smoker Frequency of Alcohol Use: None Type of Drug Use: None - Constitutional Constitutional: Absent: chills - Respiratory Respiratory: Present: other (Active pneumonia) - Gastrointestinal Gastrointestinal: Present: as per HPI Exam - Constitutional Vitals: Period Temp Pulse Resp BP Sys/Mejia Pulse Ox Last 24 Hr 96.7 F-98.3 F 64-85 15-20 115-133/59-75 91-99 General appearance: no acute distress - GI/Abdominal GI/Abdominal exam: Present: normal bowel sounds, soft, other (Surgical incisions are well-healed). Absent: tenderness - Extremities Exam Extremities exam: Absent: calf tenderness, edema - Neurological Exam Neurological exam: Present: alert, oriented X3 Speech: Present: normal - Skin Skin exam: Present: normal color, warm Results - Labs CBC & BMP: 12/29/16 02:19 12/29/16 02:19
[2016-12-30] MEDS: SERTRALINE 100 MG TABLET PO SCH (21:35)
[2016-12-30] MEDS: rOPINIRole 1 MG TABLET PO SCH (21:35)
[2016-12-30] MEDS: PINDOLOL 5 MG TABLET PO SCH (21:36)
[2016-12-30] MEDS: ENOXAPARIN 40 MG/0.4 ML SYRINGE SUBCUT SCH (23:25)
[2016-12-31] MEDS: ALBUTEROL/IPRATROPIUM 3 ML NEB RESP TX SCH ×4 (00:15→20:14)
[2016-12-31] MEDS: LEVOFLOXACIN INJ 750 MG in PREMIX 1 EACH IV SCH (00:21)
[2016-12-31] MEDS: FAMOTIDINE 20 MG TABLET PO SCH ×2 (08:28→21:18)
--- NOTE | 2016-12-31 10:49 | Hospitalist Progress Note ---
Assessment and Plan (1) Pneumonitis Status: Acute Assessment and plan: Patient is being treated with intravenous levofloxacin and albuterol ipratropium nebulizer therapy. Current Visit: Yes Hospitalist: Subjective Interval history: Patient continues to complain of weakness and severe coughing. Today is day 4 of intravenous levofloxacin. I will consult physical therapy. Exam - Constitutional Vitals: Period Temp Pulse Resp BP Sys/Mejia Pulse Ox Last 24 Hr 96.7 F-98.2 F 62-91 16-22 128-147/69-84 88-99 General appearance: no acute distress - Head Head exam: Present: normal inspection - Neck Neck exam: Present: normal inspection - Respiratory Respiratory exam: Present: clear to auscultation bilaterally - Cardiovascular Cardiovascular exam: Present: regular rate and rhythm - GI/Abdominal GI/Abdominal exam: Present: normal bowel sounds, soft, other (Nontender with no palpable masses or hepatosplenomegaly.) - Extremities Exam Extremities exam: Present: normal inspection - Skin Skin exam: Present: normal color, warm, intact Results - Labs CBC & BMP: 12/29/16 02:19 12/29/16 02:19
[2016-12-31] MEDS: FLUCONAZOLE 100 MG TABLET PO SCH (12:13)
[2016-12-31] MEDS: NYSTATIN 500,000 UNIT/5 ML UDCUP SWISH/SWAL SCH ×3 (12:14→21:18)
[2016-12-31] MEDS: SERTRALINE 100 MG TABLET PO SCH (21:18)
[2016-12-31] MEDS: PINDOLOL 5 MG TABLET PO SCH (21:18)
[2016-12-31] MEDS: rOPINIRole 1 MG TABLET PO SCH (21:18)
[2017-01-01] MEDS: ENOXAPARIN 40 MG/0.4 ML SYRINGE SUBCUT SCH (00:02)
[2017-01-01] MEDS: LEVOFLOXACIN INJ 750 MG in PREMIX 1 EACH IV SCH (00:17)
[2017-01-01] MEDS: ALBUTEROL/IPRATROPIUM 3 ML NEB RESP TX SCH ×4 (01:42→19:55)
[2017-01-01 05:28] LABS: Basophils % 0.4 % (0.0-0.8); Eosinophils # 0.7 10*3/uL (0.0-0.87); Eosinophils % 12.1 % (0.00-10.9); Hematocrit 37.3 VOL% (35.7-47.0); Hemoglobin 12.2 GM/DL (12.0-16.0); Immature Granulocytes % 0.9 %; Immature Granulocytes Absolute 0.05 #; Lymphocytes # 1.7 10*3/uL (1.4-4.0); Lymphocytes % 30.4 % (21.3-54.2); Mean Corpuscular HGB Conc 32.7 GM/DL (32-36); Mean Corpuscular Hemoglobin 29 PG (27-34); Mean Platelet Volume 10.9 FL (9.6-12.0); Monocytes # 0.5 10*3/uL (0.11-0.8); Monocytes % 8.3 % (1.7-12.7); Neutrophils # 2.6 10*3/uL (1.4-7.4); Neutrophils % 47.9 % (38.7-73.9); Platelet Count 181 T/CUMM (130-400); Red Blood Count 4.19 MC/CUMM (3.8-5.5); Red Cell Distribution Width 12.9 % (9.3-17.3); White Blood Count 5.5 T/CUMM (4-12)
[2017-01-01 05:54] LABS: Osmolality,Calculated 282.3 MOS/KG (273-304)
[2017-01-01 06:42] LABS: Band Neutrophils 1 % (0-10); Eosinophils 14 % (0-10); Lymphocytes 28 % (20-55); Platelet Estimate Normal; Segmented Neutrophils 46 % (50-85); Total Cells Counted 100
[2017-01-01] MEDS: FAMOTIDINE 20 MG TABLET PO SCH ×2 (08:18→21:37)
[2017-01-01] MEDS: FLUCONAZOLE 100 MG TABLET PO SCH (08:18)
[2017-01-01] MEDS: HYDROcodone/CHLORPHENIRAMINE ER 5 ML UDCUP PO PRN ×2 (08:19→17:37)
[2017-01-01] MEDS: NYSTATIN 500,000 UNIT/5 ML UDCUP SWISH/SWAL SCH ×4 (08:40→21:37)
--- NOTE | 2017-01-01 10:40 | Hospitalist Progress Note ---
Assessment and Plan (1) Pneumonitis Status: Acute Assessment and plan: Patient is being treated with intravenous levofloxacin and albuterol ipratropium nebulizer therapy. She is to have a chest x-ray today. Current Visit: Yes Hospitalist: Subjective Interval history: Her major complaint continues to be that of coughing. She is not experiencing chest pain or headache. She continues treatment with intravenous levofloxacin and albuterol ipratropium nebulizer therapy. Today is day 5 of antibiotics. She is to undergo a chest x-ray today. Exam - Constitutional Vitals: Period Temp Pulse Resp BP Sys/Mejia Pulse Ox Last 24 Hr 97.1 F-97.9 F 63-87 18-22 128-170/71-80 93-99 General appearance: no acute distress - Head Head exam: Present: normal inspection - Neck Neck exam: Present: normal inspection - Respiratory Respiratory exam: Present: clear to auscultation bilaterally - Cardiovascular Cardiovascular exam: Present: regular rate and rhythm - GI/Abdominal GI/Abdominal exam: Present: normal bowel sounds, soft, other (Nontender with no palpable masses or hepatosplenomegaly.) - Extremities Exam Extremities exam: Present: normal inspection - Skin Skin exam: Present: normal color, warm, intact Results - Labs CBC & BMP: 01/01/17 04:36 01/01/17 04:36
--- NOTE | 2017-01-01 14:00 | XRay Report ---
2 view chest Indication: Difficulty breathing, pneumonia Comparison: December 29, 2016 Findings: Cardiomediastinal contours are normal. Lungs are clear bilaterally. . No acute osseous abnormalities. Visualized upper abdomen demonstrates no acute pathology. Impression: No acute cardiopulmonary findings PROCEDURE INTERPRETED AT [facility] DEPARTMENT OF RADIOLOGY Final Report Signed by: Savi Machado MD
[2017-01-01] MEDS: MAGNESIUM HYDROXIDE SUSP 30 ML UDCUP PO PRN (17:37)
[2017-01-01] MEDS: rOPINIRole 1 MG TABLET PO SCH (21:36)
[2017-01-01] MEDS: SERTRALINE 100 MG TABLET PO SCH (21:37)
[2017-01-01] MEDS: PINDOLOL 5 MG TABLET PO SCH (21:37)
[2017-01-02] MEDS: ENOXAPARIN 40 MG/0.4 ML SYRINGE SUBCUT SCH ×3 (00:04→23:59)
[2017-01-02] MEDS: LEVOFLOXACIN INJ 750 MG in PREMIX 1 EACH IV SCH (00:58)
[2017-01-02] MEDS: HYDROcodone/CHLORPHENIRAMINE ER 5 ML UDCUP PO PRN ×2 (00:59→08:46)
[2017-01-02] MEDS: ALBUTEROL/IPRATROPIUM 3 ML NEB RESP TX SCH ×4 (01:44→19:41)
[2017-01-02] MEDS: NYSTATIN 500,000 UNIT/5 ML UDCUP SWISH/SWAL SCH ×4 (08:45→21:16)
[2017-01-02] MEDS: FLUCONAZOLE 100 MG TABLET PO SCH (08:46)
[2017-01-02] MEDS: FAMOTIDINE 20 MG TABLET PO SCH ×2 (08:46→21:17)
--- NOTE | 2017-01-02 10:21 | Hospitalist Progress Note ---
Assessment and Plan (1) Pneumonitis Status: Acute Assessment and plan: Patient is being treated with intravenous levofloxacin and albuterol ipratropium nebulizer therapy. Today is day 5 of antibiotics. Chest x-ray showed no persistent infiltrate. Current Visit: Yes (2) Constipation Status: Acute Assessment and plan: She will receive a soapsuds enema today. She has been begun on daily MiraLAX. Current Visit: Yes Qualifiers: Constipation type: unspecified constipation type Qualified Code(s): K59.00 - Constipation, unspecified Hospitalist: Subjective Interval history: She feels somewhat better today. Her cough has been more effectively suppressed with hydrocodone. Chest x-ray demonstrated no persistent infiltrate. Her major complaint today is constipation. She has not had a bowel movement in 5 days. I have ordered a soapsuds enema for her today. Exam - Constitutional Vitals: Period Temp Pulse Resp BP Sys/Mejia Pulse Ox Last 24 Hr 96.6 F-98.1 F 60-87 17-20 112-136/66-80 91-100 General appearance: no acute distress - Head Head exam: Present: normal inspection - Neck Neck exam: Present: normal inspection - Respiratory Respiratory exam: Present: clear to auscultation bilaterally - Cardiovascular Cardiovascular exam: Present: regular rate and rhythm - GI/Abdominal GI/Abdominal exam: Present: normal bowel sounds, soft, other (Nontender with no palpable masses or hepatosplenomegaly.) - Extremities Exam Extremities exam: Present: normal inspection - Skin Skin exam: Present: normal color, warm, intact Results - Labs CBC & BMP: 01/01/17 04:36 01/01/17 04:36
[2017-01-02] MEDS: POLYETHYLENE GLYCOL POWDER 17 GM PACK PO SCH (11:05)
[2017-01-02] MEDS: MAGNESIUM HYDROXIDE SUSP 30 ML UDCUP PO PRN (13:27)
[2017-01-02] MEDS: rOPINIRole 1 MG TABLET PO SCH (21:16)
[2017-01-02] MEDS: SERTRALINE 100 MG TABLET PO SCH (21:17)
[2017-01-02] MEDS: PINDOLOL 5 MG TABLET PO SCH (21:17)
[2017-01-03] MEDS: LEVOFLOXACIN INJ 750 MG in PREMIX 1 EACH IV SCH
[2017-01-03] MEDS: ALBUTEROL/IPRATROPIUM 3 ML NEB RESP TX SCH ×2 (00:59→07:33)
[2017-01-03] MEDS: HYDROcodone/CHLORPHENIRAMINE ER 5 ML UDCUP PO PRN (01:36)
[2017-01-03] MEDS: FLUCONAZOLE 100 MG TABLET PO SCH (08:45)
[2017-01-03] MEDS: FAMOTIDINE 20 MG TABLET PO SCH (08:45)
[2017-01-03] MEDS: POLYETHYLENE GLYCOL POWDER 17 GM PACK PO SCH (08:46)
[2017-01-03] MEDS: NYSTATIN 500,000 UNIT/5 ML UDCUP SWISH/SWAL SCH (08:47)
--- NOTE | 2017-01-03 11:13 | Discharge Summary ---
Hospital Course - Hospital Course Hospital Course: Ms. Abernathy is a 56 year old female with a past medical history of GERD, hiatal hernia, mitral valve prolapse, dyslipidemia, and hypertension for which she no longer needs medication who presented to the ED tonight with complaints of sharp , intermittent epigastric pain radiating into her back and worsened with any movement and on deep inspiration, as well as shortness of breath at rest and worsened by exertion, and coughing. Symptoms started at about 0130 today with severe coughing which was non-productive. She presented to [facility] at that time and was discharged home. Around lunchtime today she noted a fever of 99.8. Symptoms continue to worsen throughout the day, so she decided to present to the ED here. Just prior to arrival in the ED, she noted a fever of 101.4. She denies nausea, vomiting, and diaphoresis, but does have some orthopnea. She reports having an appendectomy here at [facility] about 2 1/2 weeks ago. She reports seeing Dr. Padilla yearly for mitral valve prolapse. Her last echocardiogram was about 2 years ago. In the ED, labs showed WBC 11.3 with a left shift, total bilirubin 1.6, AST 43, and BNP 281. Her temp was noted to be 99.2 in the ED, heart rate 103, respiratory rate 18, and blood pressure 123/69. Chest x-ray showed increased density, partially silhouetting the left hemidiaphragm. Severity of shortness of breath prompted the ERP to perform chest CT with PE protocol, which showed mild cardiomegaly, and scattered heterogeneous opacities in the peripheral lungs worse in the left lower lung, suggesting scarring and/or atelectasis. Mild pneumonitis cannot be excluded, but no PE was noted. Currently she is lying in bed resting comfortably with moderate relief of symptoms. Patient was admitted to the hospital diagnosis of pneumonia. She was treated with intravenous levofloxacin and albuterol ipratropium nebulizer therapy. Sputum and blood cultures were negative. Chest x-ray done prior to discharge showed no persistent infiltrate. However discharge she felt significantly better and was eager to go home. Diagnosis - Discharge Diagnosis (1) Pneumonitis Status: Acute (2) Constipation Status: Chronic Discharge Plan - Discharge Data Disposition: Disch To Home/Self Care Condition at Discharge: Stable Discharge Diet: advance to your usual diet Activity: resume usual activities as tolerated - Discharge Medications New HYDROcodone/CHLORPHEN ER SUSP [Tussionex] 5 ml PO Q6H PRN PRN Reason: Cough Continue Sertraline [Zoloft] 100 mg PO BEDTIME Ranitidine Tab [Zantac Tab] 150 mg PO BID rOPINIRole [Requip] 3 mg PO BEDTIME Furosemide Tab [Lasix Tab] 40 mg PO DAILY PRN PRN Reason: fluid Ibuprofen 600 mg PO TID PRN PRN Reason: Pain Pindolol 2.5 mg PO BEDTIME Oxycodone HCl/Acetaminophen [Oxycodone-Acetaminophen 5-325] 1 each PO Q4H PRN PRN Reason: Pain - Follow Up or Referral - Forms/Instructions Exam - Constitutional Vitals: Period Temp Pulse Resp BP Sys/Mejia Pulse Ox Last 24 Hr 96.3 F-97.7 F 69-82 17-20 115-138/64-84 92-99 Discharge Results Procedures and tests throughout hospitalization: Pending Orders 12/28/16 23:01 Sputum Culture and Gram Stain Stat DS: Provider Date of admission: 12/28/16 22:36 Primary care physician: Alex Richards Attending physician on admission: Donnie Crocker Consults: 12/29/16 05:36 Consult to Pastoral Services [CONS] Routine Comment: Pastoral Screen: Request Engine [employer] Visit Pastoral Screen Source of Request: Patient 12/30/16 10:22 Consult to Physician [CONS] Routine Comment: post appendectomy Consulting Provider: Breezy Shepherd When should Consulting Provider be notified: Now Consult to Specialist Group: Surgery Person Notified: Anita Date Notified: 12/30/16 Time Notified: 10:40 12/31/16 10:50 Consult to Physical Therapy [CONS] Routine Reason for Physical Therapy: Evaluate and Treat Discharging clinician: Donnie Crocker
[2017-01-03 11:52] VITALS: BP 129/73
== END 2017-01-03 12:00 | disposition home or self-care (01) | DRG 195 ==
LOC: N.ED 19:04 → N.EDINP 22:36 → N.TELES 23:46